=== PATIENT | female | born 1970 | race Caucasian/White ===

== ENCOUNTER 2023-11-01 14:41 | Emergency (ER) | payer MEDICAID, SELFPAY ==
[2023-11-01 14:42] VITALS: BP 144/85; PULSE 79; RESP 18; TEMP 36.6; O2SAT 99; BMI 32.1
--- NOTE | 2023-11-01 15:15 | ED.VIS.FEGU ---
HPI HPI - Female History of Present Illness Chief Complaint: Complaint Informant: patient and EMS Narrative Narrative: 53-year-old female presenting to the emergency department via EMS stating that she has had urinary incontinence for over 2 years. Patient is an exceedingly poor historian. She tells me that years ago during a hysterectomy she had her bladder caught and had a stent put in her head of lost her left leg and underwent radiation. She states her doctors are at [facility] and she plans on going to [facility] for this. She tells me that today her case manager specialist told her to take an ambulance to [facility] as this was a large [facility] Center with a helicopter pad and everything and get an ultrasound to see if her bladder stent is working. Actually sounds like she has a bladder stimulator and the battery needs to be replaced. She states that she is having large amounts of urinary incontinence every morning and this has been going on for 2 years. She states that it is time to get it evaluated and she wonders if she has a bladder infection because of the incontinence. She denies dysuria fever flank pain vomiting. Her other big concern is how she is going to get home and was wondering if the hospital can give her transportation to [facility]. PFSH PFSH Allergy/AdvReac Type Severity Reaction Status Date / Time No Known Allergies Allergy Verified 11/01/23 14:42 Surgical History H/O: hysterectomy Social History Smoking Status: Smoker, status unknown ROS ROS ED Constitutional Constitutional ED: Denies chills, fever(s) or weight loss Eyes Eyes: Denies change in vision or diplopia ENT ENT ED: Denies ear pain, rhinorrhea or sore throat Cardiovascular Cardiovascular: Denies chest pain, orthopnea, palpitations or racing heartbeat Respiratory/Chest Respiratory/Chest: Denies cough, dyspnea or orthopnea Gastrointestinal Gastrointestinal: Denies abdominal pain, diarrhea, nausea or vomiting Genitourinary Genitourinary ED: Reports urinary frequency and other Details: See history of present illness ; Denies dysuria or hematuria Musculoskeletal Musculoskeletal: Denies arthralgias or myalgias Integumentary Denies abscess or rash Neurologic Neurologic: Denies headache(s) or weakness Psychiatric Psychiatric: Denies anxiety, depression, suicidal ideation or suicidal thoughts Endocrine Endocrinology: Denies polydipsia, polyphagia or polyuria Allergic/Immunologic Allergic/Immunologic ED: Denies mouth swelling, tongue swelling or urticaria EXAM Physical Exam Const Vital Signs: 11/01/23 14:42 Temperature 97.9 F Temperature Source Oral Pulse Rate 79 Respiratory Rate 18 Blood Pressure 144/85 H Blood Pressure Mean 104 Pulse Ox 99 Oxygen Delivery Method Room Air Positive well nourished and well developed General Appearance ED: well developed HEENT Reports normocephalic, head/scalp atraumatic and moist mucous membranes Eyes PERRL and EOMs intact bilaterally Neck no lymphadenopathy, supple and no JVD Resp normal respiratory effort and clear to auscultation bilaterally Cardio regular rate, regular rhythm and no murmurs GI normal to inspection, nondistended, normoactive bowel sounds and non-tender Palpation: soft Back/Spine no CVA tenderness and normal ROM Extremity Extremity Narrative: Left AKA General Extremety ED: Negative for edema General Extremity: Negative for edema Neuro oriented x3 and CN's II-XII intact bilaterally Sensorium / Orientation: alert Motor Exam: strength 5/5 throughout Psych mental status grossly normal Mood & Affect: Negative for depressed or tearful Skin no rashes or lesions noted and no wounds MDM MDM MDM Narrative Medical decision making narrative: Differential diagnosis includes but not limited to UTI chronic urinary incontinence overflow incontinence medical resident failure Urinary straight cath shows no evidence of infection. Apparently the patient's ride showed up and the patient left the emergency department before I could speak with her about her test results. I did advise the patient during the initial H&P that she needs to see her urologist to discuss her chronic symptomology History & Record Review Discussion w/independent historian: Patient Lab Data Attestation: I reviewed the patient's lab results. Labs: Laboratory Results - last 24 hr 11/01/23 15:24 Urine Color Yellow Urine Clarity Clear Urine pH 7.0 Ur Specific [place] 1.005 Urine Protein Negative Urine Glucose (UA) Normal Urine Ketones Negative Urine Occult Blood Negative Urine Nitrite Negative Urine Bilirubin Negative Urine Urobilinogen Normal Ur Leukocyte Esterase 25 H Urine RBC 0 SEEN Urine WBC 0-5 SEEN Ur Squamous Epith Cells 0-5 SEEN Urine Bacteria 0 SEEN Urine Mucus 0 SEEN Discharge Plan Triage Chief Complaint: Complaint ED Provider: [place] Dx/Rx/DC Orders Clinical Impression: Urinary incontinence Instructions: ED Urinary Incontinence Female Primary Care Provider: Richie Santana Referrals: Richie Santana MD [Primary Care Provider] - Activity Restrictions/Additional Instructions: I strongly recommend that you follow-up with your urologist to you are established with either at [facility] or at [facility] Language: Kazakh Disposition Disposition: Home, Self Care
[2023-11-01 15:34] LABS: Bacteria 0 SEEN /hpf (None Seen); Mucous, Urine 0 SEEN /hpf (<or=2+); Red Blood Cells-Urine 0 SEEN /hpf (0-5)
--- NOTE | 2023-11-01 15:38 | ED.RN ---
PATIENT REQUESTING RN TO SET UP TRANSPORT FOR PATIENT TO GO HOME. RN STATES THE HOSPITAL DOES NOT PROVIDE TRANSPORT UNLESS YOU LIVE IN [place]. PT STATES WELL HERE TALK TO MY CASTINGS TRIMMER. CASTINGS TRIMMER STATES I TOLD HER SHE NEEDS TO CALL THIS NUMBER AND SET UP HER OWN TRANSPORT HOME. CASTINGS TRIMMER GAVE RN NUMBER FOR PATIENT TO CALL. NUMBER GIVEN TO PATIENT AND ADDRESS TO HOSPITAL CASTINGS TRIMMER STATES PATIENT HAS A TENDENCY TO BE MANIPULATIVE AND WANTS EVERYONE TO DO THINGS FOR HER. DR. JOSEPH NOTIFIED
[2023-11-01 15:48] LABS: Color, Urine Yellow (Yellow); Glucose, Dipstick Normal (Normal); Ketone-Dipstick Negative (Negative); Leukocyte Esterase-Dipstick 25 /ul (Negative); Nitrite-Dipstick Negative (Negative); Occult Blood-Urine Negative /ul (Negative); Protein-Dipstick Negative (Negative); Specific Gravity, Urine 1.005 (1.002-1.030); Urine Bilirubin Dipstick Negative (Negative); Urine Clarity Clear (Clear); Urine Urobilinogen Normal (Normal)
[2023-11-01 16:19] LABS: Squamous Epithelial Cells - UA 0-5 SEEN /hpf (5-10); White Blood Cells 0-5 SEEN /hpf (0-5)
--- NOTE | 2023-11-01 16:25 | ED.RN ---
Addendum entered by Pollo Workman 11/01/23 16:30: PATIENT IN WHEELCHAIR AND PLACED AT ED ENTRANCE WAITING FOR RIDE Original Note: PER PATIENT MY RIDE IS HERE AND I NEED TO LEAVE
== END 2023-11-01 16:30 | disposition home or self-care (01) ==
PROVIDERS: Emergency Provider Emergency Medicine; PCP Internal Medicine; Visit Provider Emergency Medicine
DX: R32 Unspecified urinary incontinence (principal); F17.200 Nicotine dependence, unspecified, uncomplicated
CPT/HCPCS: 51701; 81001; 99283; P9612

== ENCOUNTER 2024-01-26 00:27 | Emergency (ER) | payer MEDICAID, SELFPAY ==
[2024-01-26 00:48] VITALS: BP 125/76; PULSE 88; RESP 16; TEMP 36.5; O2SAT 99; BMI 31.5
--- NOTE | 2024-01-26 01:23 | RAD_ITS ---
INDICATION: cough EXAMINATION/TECHNIQUE: X-RAY - XR Chest 1 View AP portable. 1:18 AM COMPARISON: No relevant prior comparison study available FINDINGS: LINES/DEVICES: None. LUNGS: No consolidation. No pneumothorax. MEDIASTINUM: Unremarkable. CARDIAC SILHOUETTE: Not enlarged. BONES AND SOFT TISSUES: No acute abnormalities. RAD/Chest 1 View (Portable) IMPRESSION: No evidence of active intrathoracic disease. Electronically Signed: Mia Mercer MD at 1:45 EST ,
[2024-01-26 01:24] LABS: Absolute Lymphocyte Count 1.02 X10^3/uL (0.83-4.51); Absolute Neutrophil Count 8.2 X10^3/uL (2.0-7.7); Basophil# 0.04 X10^3/uL; Basophil% 0.4 % (0-1); Eosinophil# 0.02 X10^3/uL; Eosinophils% 0.2 % (0-5); Hematocrit 32.6 % (37-47); Hemoglobin 11.1 g/dL (12.0-15.0); Lymphocyte # 1.02 X10^3/ul (0.83-4.51); Lymphocyte % 9.8 % (19-41); Mean Corpuscular Hgb 30.8 pg (27.0-32.0); Mean Corpuscular Volume 90.6 fL (81-99); Mean Platelet Vol. 11.7 fl (6.2-12.0); Monocyte# 0.99 X10^3/uL; Monocyte% 9.5 % (0-10); NRBC Flagged by Analyzer 0 % (0-5); Neutrophil # 8.15 X10^3/uL (2.7-7.7); Neutrophil % 78.3 % (47-70); Platelet Count 153 K/mm3 (150-450); RBC Distribution Width CV 12.8 % (11.6-14.6); RBC Distribution Width SD 42.3 fl (35.1-43.9); White Blood Count 10.4 K/mm3 (4.4-11.0)
[2024-01-26 01:28] VITALS: PULSE 80; RESP 16; O2SAT 99
[2024-01-26 01:45] LABS: Internal QC Validated? YES +Cl - CLEAR BKGD; Pregnancy, Serum, hCG Quali. NEGATIVE Negative
[2024-01-26 01:46] LABS: Alcohol, Blood (Medical)-Serum < 3.0 mg/dL
[2024-01-26 01:47] LABS: Anion Gap 9 (5-15); BUN 12 mg/dL (7-18); BUN/Creat Ratio 13.8 RATIO (10-20); Calcium,Total 8.8 mg/dL (8.5-10.1); Chloride 100 mmol/L (98-107); Creatinine, Serum 0.87 mg/dL (0.55-1.02); EST Glomerular Filtration Rate 73 mL/min (>60); Est Glom Filt Rate - Afr Amer 88 mL/min (>60); Estimated Creatinine Clearance 85.77 ml/min; Glucose 148 mg/dL (74-106); Potassium 3.7 mmol/L (3.5-5.1); Sodium Level 133 mmol/L (136-145)
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
[2024-01-26] MEDS: Ziprasidone HCl 20 MG Capsule PO (01:57)
[2024-01-26 02:00] VITALS: PULSE 84; RESP 16; O2SAT 97
[2024-01-26 03:00] VITALS: PULSE 89; RESP 17; O2SAT 95
[2024-01-26 03:25] LABS: Amphetamine Urine VISTA NEGATIVE (<1000 ng/mL); Barbiturate Urine VISTA NEGATIVE (< 200 ng/mL); Benzodiazepine Urine VISTA NEGATIVE (< 200 ng/mL); Cocaine Urine VISTA NEGATIVE (< 300 ng/mL); Ecstacy Urine VISTA NEGATIVE (< 500 ng/mL); Methadone Urine VISTA NEGATIVE (< 300 ng/mL); PCP Urine VISTA NEGATIVE (< 25 ng/mL); THC Urine VISTA NEGATIVE (< 50 ng/mL); Vista UDS pH Range 6
[2024-01-26 03:35] VITALS: BP 104/61; PULSE 94; RESP 14; O2SAT 99
[2024-01-26] MEDS: Gabapentin 300 MG Capsule PO (06:20)
[2024-01-26 06:29] VITALS: BP 104/61; PULSE 94; RESP 14; TEMP 36.5; O2SAT 97
== END 2024-01-26 08:01 ==
PROVIDERS: Emergency Provider Emergency Medicine; PCP Internal Medicine; Visit Provider Emergency Medicine
DX: F22 Delusional disorders (principal); Z89.612 Acquired absence of left leg above knee; F29 Unspecified psychosis not due to a substance or known physiological condition; Z79.01 Long term (current) use of anticoagulants; Z79.899 Other long term (current) drug therapy; F17.210 Nicotine dependence, cigarettes, uncomplicated; Z86.59 Personal history of other mental and behavioral disorders
CPT/HCPCS: 71045; 80048; 80307; 82077; 84703; 85025; 99285